=== PATIENT | female | born 2000 | race Caucasian/White ===

== ENCOUNTER 2024-01-06 07:15 | Outpatient (CLI) | payer OTHER ==
[2024-01-06 12:54] LABS: CALCIUM 9.7 mg/dL (8.5-10.3); CREATININE 0.9 mg/dL (0.6-1.3); POTASSIUM 3.9 mmol/L (3.5-4.5)
[2024-01-06 13:58] LABS: ESTIMATED AVERAGE GLUCOSE 91 mg/dL (70-100); HEMOGLOBIN A1c% 4.8 % (4.27-6.07)
== END 2024-01-06 07:30 | disposition home or self-care (01) ==
LOC: LAB.N 07:15
PROVIDERS: ATTEND Physician Assistant Medical
DX: G43.909 Migraine, unspecified, not intractable, without status migrainosus (principal); Z83.3 Family history of diabetes mellitus
CPT/HCPCS: 36415; 80048; 83036